=== PATIENT | female | born 1980 | race Caucasian/White ===

== ENCOUNTER 2017-12-25 20:30 | Emergency (ER) | payer OTHER ==
[2017-12-25 20:56] LABS: #Eosinphils 0.2 thou/uL (0.0-0.7); #Lymphocytes 2.8 thou/uL (1.20-3.40); #Monocytes 0.6 thou/uL (0.11-0.59); #Neutrophils 6.4 thou/uL (1.40-6.50); %Basophils 0.2 % (0.0-1.0); %Eosinophils 2.4 % (0.0-10.0); %Monocytes 5.9 % (0.0-10.0); %Neutrophils 63.5 % (42.0-75.0); Mean Corpuscular HGB CONC 33.3 g/dL (32.0-36.0); Mean Corpuscular Hemoglobin 26.2 pg (27.0-31.0); Mean Corpuscular Volume 78.7 fl (81.0-99.0); Mean Platelet Volume 8.1 fL (7.4-10.4); Platelet Count 241 thou/uL (130-400); RBC Distribution Width 13.3 % (11.5-14.5); Red Blood Cell (RBC) Count 4.57 mill/uL (4.20-5.40); White Blood Cell (WBC) Count 10.1 thou/uL (4.8-10.8)
[2017-12-25 20:58] LABS: BHCG - Serum Negative (NEGATIVE); Pregs Control Background? CLEAR/WHITE (CLR/WHITE); Pregs Control Bar Appear? YES (CONTROL BAR)
[2017-12-25] MEDS ORDERED: Ketorolac Tromethamine 30 MG/ML VIAL ONE (21:07)
[2017-12-25 21:15] LABS: ALT (SGPT) 22 U/L (8-55); AST (SGOT) 29 U/L (5-34); Albumin 4.2 g/dL (3.5-5.0); Alkaline Phosphatase 75 U/L (40-150); Anion Gap 16 mmol/L (10-20); BUN (Urea Nitrogen) 10 mg/dL (7.0-18.7); Bilirubin, Total 0.3 mg/dL (0.2-1.2); Calc. Creatinine Clearance 0 mL/min (70-130); Calcium 9.1 mg/dL (7.8-10.44); Carbon Dioxide 24 mmol/L (22-29); Chloride 104 mmol/L (98-107); Estimated GFR-MDRD 83; Globulin 3.4 g/dL (2.4-3.5); Glucose 86 mg/dL (70-105); Potassium 3.8 mmol/L (3.5-5.1); Protein, Total 7.6 g/dL (6.0-8.3); Sodium 140 mmol/L (136-145)
[2017-12-25 21:18] LABS: CKMB 0.4 ng/mL (0-6.6); Troponin I Less than 0.010 ng/mL (< 0.028)
--- NOTE | 2017-12-25 22:43 | RAD ---
CHEST ONE VIEW: History: Chest pain. Comparison: 12-21-13 FINDINGS: Lungs are clear. No pneumothorax or effusion. Cardiac silhouette and mediastinal contours are normal. IMPRESSION: No acute intrathoracic abnormality. POS: [facility]
== END 2017-12-25 22:11 | disposition home or self-care (01) ==
LOC: ERS 20:30
DX: R07.89 Other chest pain (principal); F32.9 Major depressive disorder, single episode, unspecified; F41.9 Anxiety disorder, unspecified; I47.1 Supraventricular tachycardia; Z79.899 Other long term (current) drug therapy
CPT/HCPCS: 71045; 80053; 82553; 84484; 84703; 85025; 93005; 96374; J1885

== ENCOUNTER 2019-07-06 08:26 | Outpatient (CLI) | payer OTHER ==
--- NOTE | 2019-07-06 10:56 | MRI ---
MRI BRAIN WITH AND WITHOUT CONTRAST: Date: 07/06/19 INDICATION: Migraine headache. FINDINGS: Ventricles have normal size and position. No evidence of restricted diffusion. No evidence of mass or edema. No white matter abnormality. No abnormal enhancement identified. Intracranial internal carotid arteries and cerebral arteries show expected flow-voids. Dural venous s inuses appear patent. Paranasal sinuses and mastoids appear clear. IMPRESSION: Unremarkable MRI of brain. POS: [facility]
[2019-07-06] MEDS ORDERED: Magnevist 469MG/ML 20 ML VIAL ONE (11:43)
== END 2019-07-06 08:27 | disposition home or self-care (01) ==
LOC: BICMRI 08:26
PROVIDERS: ATTEND Internal Medicine
DX: G43.909 Migraine, unspecified, not intractable, without status migrainosus (principal)
CPT/HCPCS: 70553; A9579

== ENCOUNTER 2019-07-25 09:48 | Outpatient (CLI) | payer OTHER ==
--- NOTE | 2019-07-25 11:05 | MRI ---
MRI BRAIN WITH AND WITHOUT CONTRAST: HISTORY: Possible pituitary microadenoma. COMPARISON: 07/06/2019 FINDINGS: BRAIN MRI Hemorrhage: No parenchymal hemorrhage or extra-axial hematoma. Calvarium: Appropriate T1 marrow signal intensity, Midline brain parenchyma: Unremarkable. Cerebrum:No parenchymal mass, mass effect or midline shift. Brain volume is age appropriate. Cortical cobb-white matter differentiation is preserved. No significant T2 or FLAIR white matter hyperintensities. Ventricles: No evidence of hydrocephalus. Sinuses and mastoid air cells: Adequate aeration. Diffusion: Central arterial flow is maintained. Absent restricted diffusion. Post contrast images: No pathologic enhancement of the brain parenchyma. PITUITARY MRI Pituitary stalk is unremarkable. No evidence of a large sellar or suprasellar mass. No evidence of a macroadenoma. Sagittal T1 images demonstrate a punctate hypointense focus along the posterior aspect of the joanna, measuring 0.3 cm. Post contrast images do not demonstrate any associated enhancem ent. There is questionable T2 hyperintensity, suggesting a possible cystic lesion. IMPRESSION: 1. No acute abnormality with regard to the brain parenchyma. 2. Nonenhancing, predominantly cystic lesion in the posterior aspect of the pituitary gland, unchange d in size. 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
[2019-07-25] MEDS ORDERED: Magnevist 469MG/ML 20 ML VIAL ONE (15:12)
== END 2019-07-25 09:49 | disposition home or self-care (01) ==
LOC: BICMRI 09:48
PROVIDERS: ATTEND Internal Medicine
DX: R90.89 Other abnormal findings on diagnostic imaging of central nervous system (principal); E23.6 Other disorders of pituitary gland
CPT/HCPCS: 70553; A9579

== ENCOUNTER 2020-04-22 09:21 | Outpatient (CLI) | payer OTHER ==
--- NOTE | 2020-04-22 10:15 | MMO ---
Bilateral MAMMO Bilat Diag [facility]. CLINICAL HISTORY: Patient is 40 years old and is seen for diagnostic exam and lump or thickening in the left breast at 12 o'clock. The patient has the following family history of breast cancer: maternal aunt, malignant (generic) and maternal grandmother, malignant (generic). The patient has no personal history of cancer. VIEWS: The views performed were: bilateral craniocaudal with tomosynthesis; bilateral mediolateral oblique with tomosynthesis; bilateral mediolateral with tomosynthesis; and right mediolateral. FILMS COMPARED: The present examination has been compared to a prior imaging study performed at [facility] on 04/22/2020. This study has been interpreted with the assistance of computer-aided detection. MAMMOGRAM FINDINGS: There are scattered fibroglandular densities. There are benign appearing calcifications in the left breast. Palpable left breast mass was evaluated with US. IMPRESSION: FINDINGS IN BOTH BREASTS REQUIRE ADDITIONAL EVALUATION. BREAST MRI IS RECOMMENDED. THE RESULTS OF THIS EXAM WERE SENT TO THE PATIENT. ACR BI-RADS Category 0 - Incomplete: Need additional imaging evaluation. [facility] will notify the patient of the need for additional imaging services. MAMMOGRAPHY NOTE: 1. A negative mammogram report should not delay a biopsy if a dominant of clinically suspicious mass is present. 2. Approximately 10% to 15% of breast cancers are not detected by mammography. 3. Adenosis and dense breasts may obscure an underlying neoplasm. Reported by: NELLY VILLANUEVA MD Electonically Signed: [id number]
--- NOTE | 2020-04-22 10:37 | ULT ---
LEFT BREAST ULTRASOUND: Date: 04/22/2020 HISTORY: Palpable mass at the 12 o'clock position of the left breast. Patient has a family history of breast c ancer. FINDINGS: Correlation is made with mammograms of the same date. There is an 8.0 x 5.0 mm cystic mass at the region of palpable concern (12 o'clock position left [address], 2.0 cm from the nipple) which appears to communicate with the duct. Adjacent to this is a 4-5 mm cyst. IMPRESSION: BI-RADS Category 0 - Incomplete assessment. Recommend further evaluation with a bilateral breast MRI (with and without IV contrast). POS: OFF
== END 2020-04-22 09:22 | disposition home or self-care (01) ==
LOC: BICMAMMO 09:21
PROVIDERS: ATTEND Obstetrics & Gynecology
DX: N63.22 Unspecified lump in the left breast, upper inner quadrant (principal)
CPT/HCPCS: 77066; G0279

== ENCOUNTER 2023-08-23 08:04 | Emergency (ER) | payer BC ==
[2023-08-23] MEDS ORDERED: Acetaminophen 500 MG TAB ONE (09:00)
[2023-08-23] MEDS ORDERED: Ketorolac Tromethamine 30 MG (1 mL) VIAL ONE ×2 (09:00→09:03)
[2023-08-23] MEDS ORDERED: Metoclopramide HCl 10 MG (2 mL) VIAL ONE (09:01)
[2023-08-23] MEDS ORDERED: diphenhydrAMINE 50 MG/ML VIAL ONE (09:01)
== END 2023-08-23 10:56 | disposition home or self-care (01) ==
LOC: ERS 08:04
DX: G44.209 Tension-type headache, unspecified, not intractable (principal)
CPT/HCPCS: 96374; 96375; J1200; J1885; J2765

== ENCOUNTER 2023-08-25 08:47 | Outpatient (CLI) | payer BC | END 2023-08-25 08:48 | disposition home or self-care (01) | LOC: SCSMRI 08:47 | PROVIDERS: ATTEND Internal Medicine | DX: E23.6 Other disorders of pituitary gland (principal); J34.89 Other specified disorders of nose and nasal sinuses; R90.89 Other abnormal findings on diagnostic imaging of central nervous system | CPT/HCPCS: 70553 ==